=== PATIENT | female | born 1940 | race Caucasian/White ===

== ENCOUNTER 2021-03-06 20:26 | Emergency (ER) | payer MEDICARE, MEDICAID ==
[~2021-03-06] VITALS: Ht 162.6 cm; Wt 75.0 kg
[2021-03-06 20:47] VITALS: BP 164/68
[2021-03-06] MEDS ORDERED: ketorolac trometh inj. 60 MG/2 ML VIAL IM ONE (22:05)
[2021-03-06] MEDS ORDERED: acetaminophen 325mg tablet PO ONE (22:05)
[2021-03-06] MEDS ORDERED: TETanus/Pertussis (Acell)/Diphther VAC/PF (Tdap-Adult) 0.5ml syringe IMVAC ONE (22:05)
[2021-03-06] MEDS ORDERED: HYDR-3965 PO (22:23)
[2021-03-06] MEDS ORDERED: SULF1TAB49 PO (22:23)
[2021-03-06] MEDS ORDERED: ondansetron 4mg rapidly disintigrating tab PO ONE (22:25)
[2021-03-06] MEDS ORDERED: sulfamethoxazole/trimethoprim DS (800/160mg) tablet PO ONE (22:25)
[2021-03-06] MEDS ORDERED: HYDROcodone/acetaminophen 5mg/325mg tablet PO ONE (22:25)
== END 2021-03-06 22:46 | disposition home or self-care (01) ==
LOC: ER 20:27
DX: S60.561A Insect bite (nonvenomous) of right hand, initial encounter (principal); Z79.899 Other long term (current) drug therapy; W57.XXXA Bitten or stung by nonvenomous insect and other nonvenomous arthropods, initial encounter; Y93.89 Activity, other specified; Y92.89 Other specified places as the place of occurrence of the external cause; Y99.8 Other external cause status
CPT/HCPCS: 73130; 90471; 90715; 96372; 99284; J1885

== ENCOUNTER → 2023-01-22 | Day surgery (SDC) | payer MEDICARE, MEDICAID ==
[~2023-01-22] VITALS: Ht 162.6 cm; Wt 64.0 kg
[~2023-01-22] MED LIST: ALPR0.252 PO; BETA1TAB20 PO; FAMO40TA58 PO; FLEC50TA28 PO; HYDR12.55 PO; HYDROcodone/acetaminophen 10/325mg tab PO PRN; LEVO25TA7 PO; LIDOcaine 1% (10mg/ml)w/preservative inj. 20ml MDV ONE; MAGN250T11 PO; OXAZEpam 15mg capsule PO PRN; ROSU40TA22 PO; ZOLP10TA PO; acetaminophen 325mg tablet PO PRN; diphenhydrAMINE 25mg capsule PO PRN; fentaNYL/PF 50MCG/1 ML 2ML syringe ONE; heparin 1,000unit/ml 10ml vial 10 ML ONE; hydrALAZINE 20mg/ml inj. IV ONE; iohexol 350MG/ML 100ml bottle IV ONE; midazolam 1 mg/ML 2ml injection ONE; normal saline 1,000 ML IV SCH; normal saline 1000ml 1,000 ML IV SCH; ondansetron/PF 4mg/2ml inj IV PRN; potassium Cl 20 mEq SR tablet PO ONE; potassium Cl 20 mEq SR tablet PO STA; potassium Cl 40MEQ/1/2NS 520ml 520 ML IV STA; proCHLORperazine 10 MG/2 ml inj IV PRN; proCHLORperazine 10 MG/2 ml inj ONE
[2023-01-22 16:00] VITALS: BP 167/85; PULSE 76; RESP 16; TEMP 97.6; O2SAT 95
[2023-01-22 16:14] LABS: BASOPHILS % (AUTO) 0.6 % (0-1); EOSINOPHILS % (AUTO) 0.3 % (0-6); LYMPHOCYTES # (AUTO) 1.1 X10'3 (1.1-4.8); LYMPHOCYTES % (AUTO) 14.1 % (21-51); MEAN CORPUSCULAR HEMOGLOBIN 29.4 PG (27.0-31.0); MEAN CORPUSCULAR HGB CONC 33.4 g/dL (33.0-36.5); MONOCYTES # (AUTO) 1.1 X10'3 (0-0.9); MONOCYTES % (AUTO) 14.3 % (2-12); NEUTROPHILS # (AUTO) 5.3 X10'3 (1.8-7.7); NEUTROPHILS % (AUTO) 70.7 % (42-75); PLATELET COUNT 272 X10'3 (140-440); RED BLOOD COUNT 5.11 X10'6 (4.20-5.60); WHITE BLOOD COUNT 7.5 X10'3 (4.5-11.0)
[2023-01-22 16:25] LABS: ALBUMIN 3.6 G/DL (3.4-5.0); ANION GAP 6 (8-16); BLOOD UREA NITROGEN 31 MG/DL (7-18); BUN/CREATININE RATIO 17.3 (10.0-20.0); CALCIUM 10.7 MG/DL (8.5-10.1); CHLORIDE 95 MMOL/L (99-107); CREATININE 1.79 MG/DL (0.40-0.90); GLUCOSE 127 MG/DL (70-104); MAGNESIUM 2.4 MG/DL (1.5-2.4); SODIUM 137 MMOL/L (135-145); TOTAL CARBON DIOXIDE 35.8 MMOL/L (24-32); eCRCL 20 ML/MIN; eGFR 27 ML/MIN
[2023-01-22 16:27] LABS: PROTHROMBIN TIME 10.3 SECONDS (9.0-12.0)
[2023-01-22 16:31] LABS: POTASSIUM 2.5 MMOL/L (3.5-5.1)
[2023-01-22 18:10] VITALS: BP 150/58; PULSE 66; RESP 14; O2SAT 95
[2023-01-22 18:40] VITALS: BP 153/58; PULSE 65; RESP 15; O2SAT 95
[2023-01-22 18:55] VITALS: BP 143/60; PULSE 66; RESP 13; O2SAT 94
[2023-01-22 19:10] VITALS: BP 148/59; PULSE 60; RESP 16; O2SAT 95
[2023-01-22 19:40] VITALS: BP 166/58; PULSE 66; RESP 14; O2SAT 94
--- NOTE | 2023-01-22 20:10 | NUR ---
Report given to CYNTHIA Tello. Patient transported to [facility] via wheelchair, with all known belongings. VSS, A&O x4, Right groin dressing CDI, no S/S Hematoma or bleeding. All questions answered.
== END | disposition home or self-care (01) ==
LOC: SSTAY O 15:32
PROVIDERS: ATTEND Internal Medicine Cardiovascular Disease
DX: R94.39 Abnormal result of other cardiovascular function study (principal); I12.9 Hypertensive chronic kidney disease with stage 1 through stage 4 chronic kidney disease, or unspecified chronic kidney disease; N18.9 Chronic kidney disease, unspecified; E78.00 Pure hypercholesterolemia, unspecified; K21.9 Gastro-esophageal reflux disease without esophagitis; Z85.3 Personal history of malignant neoplasm of breast; Z90.710 Acquired absence of both cervix and uterus; Z98.890 Other specified postprocedural states; Z79.899 Other long term (current) drug therapy; Z82.49 Family history of ischemic heart disease and other diseases of the circulatory system
CPT/HCPCS: 36415; 78452; 80048; 83735; 85025; 85610; 93005; 93017; 93454; 99152; A6258; A9500; J0360; J0780; J1644; J2250; J2785; J3010; J3480; J3490; J7030; Q0163; Q9967; 99153; C1725; C1760; C1894

== ENCOUNTER → 2023-01-22 | Outpatient (CLI) | payer MEDICARE, MEDICAID ==
[2023-01-22] VITALS (7 sets, daily range): BP systolic 93–136; BP diastolic 47–70; PULSE 69–86; RESP 18; O2SAT 95
[~2023-01-22] VITALS: Ht 162.6 cm; Wt 63.0 kg
[~2023-01-22] MED LIST changes: -HYDROcodone/acetaminophen 10/325mg tab PO PRN; -LIDOcaine 1% (10mg/ml)w/preservative inj. 20ml MDV ONE; -OXAZEpam 15mg capsule PO PRN; -acetaminophen 325mg tablet PO PRN; -diphenhydrAMINE 25mg capsule PO PRN; -fentaNYL/PF 50MCG/1 ML 2ML syringe ONE; -heparin 1,000unit/ml 10ml vial 10 ML ONE; -hydrALAZINE 20mg/ml inj. IV ONE; -iohexol 350MG/ML 100ml bottle IV ONE; -midazolam 1 mg/ML 2ml injection ONE; -normal saline 1,000 ML IV SCH; -normal saline 1000ml 1,000 ML IV SCH; -ondansetron/PF 4mg/2ml inj IV PRN; -potassium Cl 20 mEq SR tablet PO ONE; -potassium Cl 20 mEq SR tablet PO STA; -potassium Cl 40MEQ/1/2NS 520ml 520 ML IV STA; -proCHLORperazine 10 MG/2 ml inj IV PRN; -proCHLORperazine 10 MG/2 ml inj ONE; +regadenoson 0.4mg/5ml syringe IV ONE
== END | disposition home or self-care (01) ==
LOC: RAD 08:55
PROVIDERS: ATTEND Internal Medicine Cardiovascular Disease
DX: Z01.818 Encounter for other preprocedural examination (principal); I48.0 Paroxysmal atrial fibrillation; R94.31 Abnormal electrocardiogram [ECG] [EKG]
CPT/HCPCS: 78452; 93017; A9500; J2785

== ENCOUNTER 2024-07-18 11:12 | Day surgery (SDC) | payer MEDICARE, MEDICAID ==
[~2024-07-18] VITALS: Ht 162.6 cm; Wt 53.6 kg
[~2024-07-18 11:12] MED LIST changes: +AMIO200T72 PO; +APIX2.5T PO; -FAMO40TA58 PO; -FLEC50TA28 PO; -HYDR12.55 PO; +OMEP40CA21 PO; +POTA-188 PO; -ROSU40TA22 PO; +ROSU40TA89 PO; +TETR-78; -regadenoson 0.4mg/5ml syringe IV ONE
[2024-07-18 11:47] VITALS: BP 187/87; PULSE 72; RESP 19; TEMP 97.4
[2024-07-18] MEDS ORDERED: propofol 10mg/ml 20ml vial IV ONE (12:12)
[2024-07-18 12:25] VITALS: BP 143/68; PULSE 50; RESP 16; O2SAT 99
[2024-07-18 12:35] VITALS: BP 135/68; PULSE 52; RESP 15; O2SAT 99
[2024-07-18 12:45] VITALS: BP 151/74; PULSE 58; RESP 14; O2SAT 98
[2024-07-18 12:55] VITALS: BP 161/73; PULSE 65; RESP 14; O2SAT 97
== END 2024-07-18 13:00 | disposition home or self-care (01) ==
LOC: GI LAB 11:12
PROVIDERS: ATTEND Internal Medicine Gastroenterology
DX: R63.0 Anorexia (principal); R63.4 Abnormal weight loss; K44.9 Diaphragmatic hernia without obstruction or gangrene; K31.89 Other diseases of stomach and duodenum; N18.9 Chronic kidney disease, unspecified; J45.909 Unspecified asthma, uncomplicated; I48.91 Unspecified atrial fibrillation; R00.1 Bradycardia, unspecified; Z85.3 Personal history of malignant neoplasm of breast; Z87.891 Personal history of nicotine dependence; Z98.890 Other specified postprocedural states; Z79.899 Other long term (current) drug therapy
CPT/HCPCS: 43239; A4620; J2704; J7030; Z7512; 88305